=== PATIENT | male | born 1965 | race Caucasian/White ===

== ENCOUNTER 2019-07-04 21:34 | Emergency (ER) | payer MEDICAID ==
[~2019-07-04] VITALS: Ht 185.4 cm; Wt 104.8 kg
[2019-07-04 21:37] VITALS: Ht 185.4 cm; Wt 104.8 kg
[2019-07-04 23:00] VITALS: BP 154/109
== END 2019-07-04 23:00 | disposition home or self-care (01) ==
LOC: ED 21:34
DX: G89.29 Other chronic pain (principal); M54.5 Low back pain